=== PATIENT | female | born 1955 | race Caucasian/White ===

== ENCOUNTER 2019-08-24 07:59 | Outpatient (CLI) | payer OTHER, SELFPAY ==
--- NOTE | ~2019-08-24 | MM_ITS ---
EXAMINATION: MM screening tracie BI w amy HISTORY: Screening mammogram TECHNIQUE: Craniocaudal and mediolateral oblique 3-D tomosynthesis images were obtained and synthetic 2-D images were generated. CAD analysis was submitted and interpreted. COMPARISON: Comparison to multiple prior studies sequentially, with oldest reviewed study dated 10/26. BREAST PARENCHYMAL COMPOSITION: The breasts are heterogeneously dense, which may obscure small masses . FINDINGS: There is no evidence of suspicious mass, calcification, or architectural distortion to sugg est malignancy in either breast. There has been no suspicious interval change. IMPRESSION: 1. No mammographic evidence of malignancy. 2. Recommend routine screening mammography in one year. BI-RADS Category 1: Negative Reviewed, dictated and finalized at location A.
== END 2019-08-24 08:00 | disposition home or self-care (01) ==
PROVIDERS: PCP Internal Medicine Geriatric Medicine; Visit Provider Obstetrics & Gynecology Gynecology
DX: Z12.31 Encounter for screening mammogram for malignant neoplasm of breast (principal)
CPT/HCPCS: 77063; 77067

== ENCOUNTER 2020-09-19 09:08 | Outpatient (CLI) | payer OTHER, MEDICARE, SELFPAY ==
--- NOTE | ~2020-09-19 | MM_ITS ---
EXAMINATION: MM screening tracie BI w amy HISTORY: Screening mammogram TECHNIQUE: Craniocaudal and mediolateral oblique 3-D tomosynthesis images were obtained and synthetic 2-D images were generated. CAD analysis was submitted and interpreted. COMPARISON: 08/24/2019, 03/24/2018, 01/20/2017 bilateral digital screening mammogram examinations BREAST PARENCHYMAL COMPOSITION: The breasts are heterogeneously dense, which may obscure small masses . FINDINGS: There is no evidence of suspicious mass, calcification, or architectural distortion to sugg est malignancy in either breast. There has been no suspicious interval change. IMPRESSION: 1. No mammographic evidence of malignancy. 2. Recommend routine screening mammography in one year. BI-RADS Category 1: Negative Reviewed, dictated and finalized at location A.
== END 2020-09-19 09:09 | disposition home or self-care (01) ==
LOC: ANHIMG 09:13
PROVIDERS: PCP Internal Medicine Geriatric Medicine; Visit Provider Internal Medicine Geriatric Medicine
DX: Z12.31 Encounter for screening mammogram for malignant neoplasm of breast (principal)
CPT/HCPCS: 77063; 77067

== ENCOUNTER 2021-10-07 01:14 | Day surgery (SDC) | payer MEDICARE, OTHER, SELFPAY ==
--- NOTE | 2021-09-29 09:05 | PC.NURSE ---
Report to the Outpatient Waiting Room, entrance under the green pavilion located off [facility], at time _0730_ on date _[id number]_. OR Time: _0930_. - You and your visitor will be asked a series of questions to screen for COVID 19 for your protection. - Only one visitor is allowed at this time. - The patient visitor is requested to leave or wait in car when not with patient. - A mask is required within the hospital. Patients may have clear liquids (water, carbonated beverages, clear teas, apple juice) until 3 hours prior to surgery with a maximum of 20 ounces. - No food from midnight until time of surgery Take the following medications with a SIP of water the morning of surgery: _None Medications to discontinue per physician None Date to take last dose Please no make-up, nail mauritanian, hairspray, perfume, deodorant, or body powder the day of surgery. No jewelry (including any body piercings) or valuables the day of surgery, leave them at home. Please take a shower or bath the night before, or the morning of, surgery with an antibacterial soap. Wear comfortable, loose fitting clothing. - Jewelry must be removed prior to entering the operating room. Rings and piercings that are not removed may be cut off. - The hospital will not accept responsibility for valuables. - Please leave all valuables, including medications, at home the day of surgery. If you are going home after surgery, a licensed boat driver must drive you home. - NO public transportation without another adult. - We recommend that an adult stay with you for 24 hours following discharge. - We also recommend that you do not drive, make important decision, drink alcoholic beverages, or take any drugs that were not prescribed by your health care provider for at least 24 hours after your discharge time. Follow any additional instructions given to you from your surgeon. If you or anyone in your household have experienced Covid symptoms in the past week, please notify your surgeon or the nurse liaison at the phone number below for possible testing. Telephone instructions given to __Patient___and asked if any additional questions and then verbalized understanding. Patient advised to call surgeon office or pre surgery nurse liaison [phone] if any additional questions.
--- NOTE | 2021-10-07 07:12 | WPDHPUPDATE1 ---
History and Physical Update Update Date/Time: 10/07/21 07:12 History and Physical has been reviewed, including an updated exam of the patient. There are NO changes in the patient's condition. Risks, benefits, and alternatives have been discussed and questions answered. Patient agrees to proceed with procedure.
[2021-10-07 09:52] VITALS: BP 158/68; PULSE 73; RESP 20; TEMP 36.4; O2SAT 100
--- NOTE | 2021-10-07 10:37 | P.PNAN_ITS ---
Anes - Initial Pre Proc Eval Procedure: Operation Date: 10/07/21 12:30 Proposed Procedures p Left Ulnar Neuroplasty at Elbow - Rachid Iniguez MD Date/Time: 10/07/21 10:37 Surgeon: Rachid Iniguez MD Pre Op Diagnosis: left cubital tunnel syndrome Patient Data Age: 66 Gender: F Height: 1.65 m Weight: 54.5 kg Allergies Allergy/AdvReac Type Severity Reaction Status Date / Time No Known Allergies Allergy Verified 09/29/21 08:57 Home Medications Medication Instructions Recorded Confirmed Type No Home Medications 07/16/21 10/07/21 History Patient hx anesthesia problems: none Family hx anesthesia problems: none Results Review: All pre-operative results and documents have been reviewed as part of the pre- operative evaluation. [facility] Past Medical History Medical History Cubital tunnel syndrome Left elbow pain Left shoulder pain Surgical History Surgical History History of colon surgery 2010 Social History Social History Smoking packs per day: 0.5 Smoking cigarettes per day: 10.0 Years smoked: 15 Smoking pack-years: 7.50 Smoking status: Former smoker Tobacco type: cigarettes Smoking end date: 09/30/91 Alcohol intake: current Alcohol use details: 5 drinks per month Living arrangements: with family Gender identity (if verbalized by the patient): Female Spiritual care concerns: No Anes - Eval Final PreProcedure Day of Procedure 10/07/21 10:37 Patient weight: normal Heart: regular rate and rhythm Lungs: clear to auscultation Airway: Mallampati scale class II Neurological: alert and oriented Last oral intake: >/= 8 hours ASA classification: II Emergent: no Anesthetic plan: proceed Anesthesia type and monitoring: general GIVS and standard monitoring Results Review: All pre-operative results and documents have been reviewed as part of the pre- operative evaluation. Informed Consent: The patient's anesthetic plan and its attendant risks and benefits were discussed with the patient/family/POA. Questions were solicited and answers provided to the satisfaction of the patient/family/POA.
[2021-10-07] MEDS: LACTATED RINGERS 1,000 ML 30 ML IV CONT (10:45)
[2021-10-07] MEDS: KETOROLAC 15 MG/ML VIAL (*BKC) IV PUSH (11:36)
[2021-10-07] MEDS: LIDO 1%/EPINEPHRINE 1:100,000 20 ML VIAL 6 ML INFILTRATE (11:56)
[2021-10-07 12:27] VITALS: BP 116/44; PULSE 73; RESP 14; O2SAT 100
[2021-10-07 12:55] VITALS: BP 119/58; PULSE 68
--- NOTE | 2021-10-07 13:03 | W.PM.PROC2 ---
Procedure Note - Detailed Date of Procedure 10/07/21 Pre-op Diagnosis left cubital tunnel syndrome Post-op Diagnosis Same Procedure Performed Left ulnar neuroplasty the at the elbow with subcutaneous transposition Surgeon Rachid Iniguez MD Early Breastfeeding Care Specialist Dimple Barrientos Anesthesia MAC Description of Procedure The cubital tunnel was marked on the patient with her consent in the holding area. She was taken to the operating room and placed supine on the operating table. She was given sedation anesthetic and the left upper extremity was prepped and draped in usual fashion. A time-out was held and confirmed. The site was marked for the incision and locally infiltrated with 1% lidocaine with epinephrine. The extremity was exsanguinated and the tourniquet inflated to 250 mmHg. The elbow was flexed and supported on folded towels. The incision was made as marked and dissection was carried through the subcutaneous tissue to the ulnar nerve. This was noted to lie near the top of the medial epicondyle. It was fully exposed and dissected proximally and distally to completely release it. The triceps muscle posteriorly appeared to apply force on the nerve elevating it out of the ulnar groove. The flexor muscle fascia distally may have been a contributing factor and the compression.. The flap was dissected off the medial epicondyle and the fascial flap designed off the same structure and the nerve was mobilized and transposed anteriorly. The flap was constructed with 3-0 Monocryl sutures retaining the nerve anteriorly there was no direct pressure or constriction on the nerve. The wound was closed with intradermal 3-0 Monocryl suture and the skin approximated with glue. The tourniquet was released prior to closure. There was no significant bleeding. The usual bandage was applied and the patient was discharged from the operating room stable condition. Estimated Blood Loss 5 Drains No Packing No Pathology None sent Complications No immediate complications Condition Stable Disposition Same day
[2021-10-07] MEDS: oxyCODONE HCL (*CRX) 5 MG TAB IR PO (13:09)
[2021-10-07 13:25] VITALS: BP 119/47; PULSE 67
== END 2021-10-07 13:40 | disposition home or self-care (01) ==
PROVIDERS: PCP Internal Medicine Geriatric Medicine; Visit Provider Plastic Surgery
PROC: (CPT 64718; principal; 2021-10-07 12:30)
DX: G56.22 Lesion of ulnar nerve, left upper limb (principal); R53.1 Weakness; R00.2 Palpitations; Z87.891 Personal history of nicotine dependence
CPT/HCPCS: 64718; A9270; J1885; J2250; J2704; J3010; J7120

== ENCOUNTER 2023-06-28 06:42 | Day surgery (SDC) | payer MEDICARE, OTHER, SELFPAY ==
[2023-06-06 08:39] VITALS: BMI 19.3
[2023-06-14 10:50] VITALS: BMI 19.3
[2023-06-28 07:23] VITALS: BP 130/63; PULSE 87; RESP 14; TEMP 36.1; O2SAT 99
--- NOTE | 2023-06-28 07:23 | P.PNAN_ITS ---
Anes - Initial Pre Proc Eval Procedure: Operation Date: 06/28/23 08:30 Proposed Procedures p Diagnostic Colonoscopy - Adis Cota MD Date/Time: 06/28/23 07:23 Surgeon: Adis Cota MD Pre Op Diagnosis: Unspec.abd pain,chg in bowel habit,personal HX of Patient Data Age: 68 Gender: F Height: 1.65 m Weight: 52.1 kg Allergies Allergy/AdvReac Type Severity Reaction Status Date / Time No Known Allergies Allergy Verified 06/28/23 07:18 Home Medications Medication Instructions Recorded Confirmed Type famotidine 40 mg tablet 40 mg PO DAILY 06/14/23 06/28/23 History polyethylene glycol 3350 17 17 g PO DAILY 06/14/23 06/28/23 History gram/dose oral powder (Miralax) Patient hx anesthesia problems: none Family hx anesthesia problems: none Results Review: All pre-operative results and documents have been reviewed as part of the pre- operative evaluation. [facility] Past Medical History Medical History (Updated 06/28/23 @ 08:17 by Praful Rdz DO) Change in bowel habits Chronic nausea Cubital tunnel syndrome History of colon cancer 10 years ago Left elbow pain Left shoulder pain Left sided abdominal pain Surgical History Surgical History History of colon surgery 2010 Social History Social History Smoking packs per day: 0.5 Smoking cigarettes per day: 10.0 Years smoked: 15 Smoking pack-years: 7.50 Smoking status: Former smoker Tobacco type: cigarettes Smoking end date: 09/30/91 Alcohol intake: current Drinks per week: 4 Alcohol use details: 5 drinks per month Substance use type: does not use Living arrangements: with family Gender identity (if verbalized by the patient): Female Spiritual care concerns: No Anes - Eval Final PreProcedure Day of Procedure 06/28/23 07:23 Patient weight: normal Heart: regular rate and rhythm Lungs: clear to auscultation and normal air movement Airway: Mallampati scale class II Neurological: alert and oriented Last oral intake: >/= 8 hours ASA classification: II Emergent: no Anesthetic plan: proceed Anesthesia type and monitoring: general GIVS and standard monitoring Results Review: All pre-operative results and documents have been reviewed as part of the pre- operative evaluation. Informed Consent: The patient's anesthetic plan and its attendant risks and benefits were discussed with the patient/family/POA. Questions were solicited and answers provided to the satisfaction of the patient/family/POA.
--- NOTE | 2023-06-28 07:56 | WPDHPUPDATE1 ---
History and Physical Update Update Date/Time: 06/28/23 07:56 History and Physical has been reviewed, including an updated exam of the patient. There are NO changes in the patient's condition. Risks, benefits, and alternatives have been discussed and questions answered. Patient agrees to proceed with procedure.
[2023-06-28] MEDS: LACTATED RINGERS 1,000 ML 150 ML IV CONT (08:24)
[2023-06-28] MEDS: SIMETHICONE ORAL SUSPENSION 20 MG/0.3 ML 30 ML BOTTLE 0.6 ML IRRIGATION (08:34)
[2023-06-28 08:43] VITALS: BP 103/41; PULSE 71; RESP 18; O2SAT 100
[2023-06-28 08:53] VITALS: PULSE 73; RESP 15; O2SAT 100
[2023-06-28 09:03] VITALS: BP 114/58; PULSE 68; RESP 14; O2SAT 100
--- NOTE | 2023-06-28 11:16 | WPDANESPN ---
Anes - Prog Note Post-Op Date/Time: 06/28/23 11:16 Cardiovascular status: normal Respiratory status: normal Airway patency: baseline Mental status: baseline Post-Op hydration status: normal Vital Signs: Last Vital Signs Temp 36.1 C L 06/28/23 07:23 Pulse 68 06/28/23 09:03 Resp 14 06/28/23 09:03 BP 114/58 L 06/28/23 09:03 Pulse Ox 100 06/28/23 09:03 O2 Del Method Room Air 06/28/23 09:03 Pain Score (VAS): 0 I/O: Intake & Output 06/27/23 06/28/23 06/28/23 23:59 07:59 15:59 Intake Total 0 Balance 0 Post-procedural complaints: none Patient Feedback: Patient satisfied with anesthetic care. Other Findings: Patient vital signs back to baseline. Patient denies nausea and vomiting. Patient's pain under control. Patient OK for discharge.
== END 2023-06-28 09:18 | disposition home or self-care (01) ==
PROVIDERS: PCP Internal Medicine Geriatric Medicine; Visit Provider Internal Medicine Gastroenterology
PROC: 0DJD8ZZ Inspection of Lower Intestinal Tract, Via Natural or Artificial Opening Endoscopic (ICD-10-PCS; CPT 45378; principal; 2023-06-28 08:30)
DX: Z85.038 Personal history of other malignant neoplasm of large intestine (principal); K63.89 Other specified diseases of intestine; K57.30 Diverticulosis of large intestine without perforation or abscess without bleeding; K64.8 Other hemorrhoids
CPT/HCPCS: G0105